=== PATIENT | female | born 1970 | race Hispanic/Latino ===

== ENCOUNTER 2017-12-12 14:14 | Observation (INO) | payer SELFPAY ==
[2017-12-12 15:03] LABS: #Eosinphils 0.1 thou/uL (0.0-0.7); #Lymphocytes 1.4 thou/uL (1.20-3.40); #Monocytes 0.4 thou/uL (0.11-0.59); #Neutrophils 4.8 thou/uL (1.40-6.50); %Basophils 0.4 % (0.0-1.0); %Eosinophils 1.2 % (0.0-10.0); %Lymphocytes 21.3 % (21.0-51.0); %Monocytes 5.9 % (0.0-10.0); %Neutrophils 71.2 % (42.0-75.0); Hemoglobin 13.5 g/dL (12.0-16.0); Mean Corpuscular HGB CONC 35.1 g/dL (32.0-36.0); Mean Corpuscular Hemoglobin 31.9 pg (27.0-31.0); Mean Corpuscular Volume 90.9 fL (78.0-98.0); Mean Platelet Volume 6.8 fL (7.4-10.4); Platelet Count 252 thou/uL (130-400); RBC Distribution Width 11.6 % (11.5-14.5); Red Blood Cell (RBC) Count 4.24 mill/uL (4.20-5.40); White Blood Cell (WBC) Count 6.7 thou/uL (4.8-10.8)
[2017-12-12 15:24] LABS: ALT (SGPT) 21 U/L (8-55); AST (SGOT) 15 U/L (5-34); Albumin 4.2 g/dL (3.5-5.0); Alkaline Phosphatase 73 U/L (40-150); Anion Gap 13 mmol/L (10-20); BUN (Urea Nitrogen) 10 mg/dL (7.0-18.7); Bilirubin, Total 0.5 mg/dL (0.2-1.2); Calc. Creatinine Clearance 0 mL/min (70-130); Calcium 9.2 mg/dL (7.8-10.44); Carbon Dioxide 23 mmol/L (22-29); Chloride 106 mmol/L (98-107); Estimated GFR-MDRD 64; Globulin 3.3 g/dL (2.4-3.5); Glucose 153 mg/dL (70-105); Potassium 3.5 mmol/L (3.5-5.1); Protein, Total 7.5 g/dL (6.0-8.3); Sodium 138 mmol/L (136-145)
[2017-12-12 15:27] LABS: CKMB 0.5 ng/mL (0-6.6); Troponin I Less than 0.010 ng/mL (< 0.028)
--- NOTE | 2017-12-12 15:53 | RAD ---
CHEST 1 VIEW: Date: 12/12/17 HISTORY: Palpitations. COMPARISON: None. FINDINGS: Lungs are clear. No pneumothorax or effusion. Cardiac silhouette and mediastinal contours within norm al limits. IMPRESSION: No acute intrathoracic abnormality. POS: AYESHAH
[2017-12-12 17:34] LABS: Bilirubin Negative (Negative); Blood, Urine Negative (Negative); Clarity TURBID (Clear); Glucose, Urine (Dipstick) Negative (Negative); Leukocyte Negative (Negative); Nitrite Negative (Negative); Protein, Urine (Dipstick) Negative (Neg-Trace); Specific Gravity, Urine 1.019 (1.002-1.036); Urobilinogen 0.2 mg/dL (0.2-1.0)
[2017-12-12 18:31] LABS: Troponin I Less than 0.010 ng/mL (< 0.028)
--- NOTE | 2017-12-12 21:24 | HP ---
PRIMARY CARE PHYSICIAN: Fred Sotelo M.D. DATE OF ADMISSION: 12/12/2017 TIME OF SERVICE: 1814. CHIEF COMPLAINT: Chest pain, palpitations. HISTORY OF PRESENT ILLNESS: Ms. Rivas is a pleasant 47-year-old female with no past medical history other than a one day history of palpitations about 2 years ago. She had a workup in the ER that was negative and was subsequently sent home. At this time is different that her palpitations have laste d intermittently for the last 3 days. She does feel like her heart is racing and will take a pause a nd will race to catch up again. She denies any syncope, but has felt dizzy and presyncopal. No naus ea, vomiting, diarrhea, or constipation. No diaphoresis. She has had no shortness of breath. No co ugh or sputum production. She denies any change or increase in her caffeine or stimulant increase. She had her normal morning . Workup in the emergency department showed normal labs and negative cardiac biomarkers. EKG showed so me T-wave inversions laterally. We were subsequently called for admission. She has not had any further recurrence in the emergency department. PAST MEDICAL HISTORY: None. PAST SURGICAL HISTORY: Appendectomy in 2012. HOME MEDICATIONS: None. ALLERGIES: NKDA. FAMILY HISTORY: Significant for a sister with stroke at age 45 and her other sister had heart proble ms starting at age 52. No known heart attacks. SOCIAL HISTORY: Negative for habits x3. REVIEW OF SYSTEMS: All systems reviewed and negative except as per HPI. PHYSICAL EXAMINATION: VITAL SIGNS: Temperature 97.8, pulse 82, blood pressure 113/75, respiratory rate 20, satting 97% on room air. GENERAL: She is awake, alert, oriented x3, well-developed, well-nourished female who appears to be i n no acute distress. HEENT: Normocephalic, atraumatic. Pupils equal, round, reactive to light bilaterally. Mucous membr anes are moist. She has no visible lesions. No thrush. NECK: Supple. She had no lymphadenopathy, JVD or thyromegaly with normal carotid upstroke. I do no t appreciate a bruit. LUNGS: Clear. CARDIOVASCULAR: She has normal S1, S2. No S3, S4. No audible murmurs. ABDOMEN: Soft, nontender, nondistended, no mass or organomegaly. EXTREMITIES: No cyanosis, no clubbing, and no edema. SKIN: Warm, moist and well perfused. She had no rashes, no lesions. MUSCULOSKELETAL: Normal to inspection. Large joints appear normal with no evidence of inflammation or palpable effusions. NEUROLOGIC: Cranial nerves II-XII are grossly intact. She has no focal deficits, 5/5 strength in al l 4 extremities and normal speech pattern. LABORATORY DATA: Sodium is 138, potassium 3.5, chloride 106, bicarb 23, BUN 16, creatinine 0.9, gluc ose 133, and calcium 9.2. Her liver functions completely within normal limits. Her CBC showed a whi te count of 6.7, hemoglobin 13.5, hematocrit 38.5, and platelet count is 252,000. CK-MB is normal at 0.5, troponin I is undetectable less than 0.010. BNP is elevated at 135. CK of 132. Chest x-ray showed no acute cardiopulmonary abnormality. ASSESSMENT AND PLAN: 1. Palpitations and acute coronary artery syndrome, low risk. We will get serial cardiac biomarkers placed on nitro paste, beta brianna, oxygen, and aspirin. We will reevaluate in the morning. We wi ll keep her on a regular cardiac diet tonight and n.p.o. after midnight in case if there is anything further to do. No activity prophylaxis. We will place her on single dose of Lovenox tonight. 2. Gastrointestinal prophylaxis on Pepcid b.i.d. 3. Placed on the observation unit with telemetry monitoring and follow up on her telemetry in the mo rning.
[2017-12-12 21:51] LABS: Troponin I Less than 0.010 ng/mL (< 0.028)
[2017-12-12] MEDS ORDERED: Acetaminophen 325 MG TAB PO PRN (22:41)
[2017-12-12] MEDS ORDERED: Enoxaparin Sodium 40 MG/0.4 ML SYRINGE SC SCH (22:41)
[2017-12-12] MEDS ORDERED: Ondansetron ODT 4 MG TAB PO PRN (22:41)
[2017-12-12] MEDS ORDERED: Ondansetron HCl/PF 4 MG/2 ML Vial IVP PRN (22:41)
[2017-12-12 22:43] VITALS: BMI 28.4
[2017-12-12] MEDS ORDERED: Nitroglycerin 2% Ointment 1 INCH/1 GM Packet TOP SCH (23:00)
[2017-12-12] MEDS ORDERED: Metoprolol Tartrate 25 MG TAB PO SCH (23:00)
[2017-12-12] MEDS ORDERED: Famotidine 20 MG TAB PO SCH (23:00)
[2017-12-12 23:54] LABS: CKMB 0.4 ng/mL (0-6.6); Troponin I Less than 0.010 ng/mL (< 0.028)
[2017-12-13 04:18] VITALS: TEMP 98.4
[2017-12-13] MEDS ORDERED: Nitroglycerin 2% Ointment 1 INCH/1 GM Packet TOP SCH (06:00)
[2017-12-13 07:03] LABS: #Basophils 0.1 thou/uL (0.0-0.2); #Eosinphils 0.1 thou/uL (0.0-0.7); #Lymphocytes 1.8 thou/uL (1.20-3.40); #Monocytes 0.4 thou/uL (0.11-0.59); #Neutrophils 2.9 thou/uL (1.40-6.50); %Basophils 1.8 % (0.0-1.0); %Eosinophils 2.2 % (0.0-10.0); %Lymphocytes 33.7 % (21.0-51.0); %Monocytes 7.7 % (0.0-10.0); %Neutrophils 54.6 % (42.0-75.0); Hemoglobin 12.9 g/dL (12.0-16.0); Mean Corpuscular HGB CONC 34.3 g/dL (32.0-36.0); Mean Corpuscular Hemoglobin 31.8 pg (27.0-31.0); Mean Corpuscular Volume 92.6 fL (78.0-98.0); Mean Platelet Volume 6.3 fL (7.4-10.4); Platelet Count 217 thou/uL (130-400); RBC Distribution Width 11.5 % (11.5-14.5); Red Blood Cell (RBC) Count 4.07 mill/uL (4.20-5.40); White Blood Cell (WBC) Count 5.3 thou/uL (4.8-10.8)
[2017-12-13 07:24] LABS: Anion Gap 12 mmol/L (10-20); BUN (Urea Nitrogen) 15 mg/dL (7.0-18.7); Calc. Creatinine Clearance 96 mL/min (70-130); Calcium 8.5 mg/dL (7.8-10.44); Carbon Dioxide 23 mmol/L (22-29); Cardiac Risk 5.6 (Less than 4.5); Chloride 107 mmol/L (98-107); Cholesterol 192 mg/dl (< 200 Desired); Estimated GFR-MDRD 66; Glucose 93 mg/dL (70-105); HDL Cholesterol 34 mg/dL (>60 Neg Risk); LDL Cholesterol, Calculated 98 mg/dL; Magnesium 2.3 mg/dL (1.6-2.6); Potassium 3.6 mmol/L (3.5-5.1); Sodium 138 mmol/L (136-145); Triglycerides 298 mg/dL (Less than 150)
[2017-12-13 07:28] LABS: CKMB 0.3 ng/mL (0-6.6); Troponin I Less than 0.010 ng/mL (< 0.028)
[2017-12-13 08:24] VITALS: BP 131/78
[2017-12-13] MEDS ORDERED: Aspirin 325 mg Enteric Coated Tablet PO SCH (09:00)
[2017-12-13] MEDS ORDERED: Famotidine 20 MG TAB PO SCH (09:00)
[2017-12-13] MEDS ORDERED: Metoprolol Tartrate 25 MG TAB PO SCH (09:00)
--- NOTE | 2017-12-13 12:29 | EKG ---
Test Reason : Blood Pressure : / mmHG Vent. Rate : 060 BPM Atrial Rate : 060 BPM P-R Int : 172 ms QRS Dur : 094 ms QT Int : 452 ms P-R-T Axes : 051 063 053 degrees QTc Int : 452 ms Normal sinus rhythm Normal ECG When compared with ECG of 12-DEC-2017 14:20, (Unconfirmed) T wave inversion no longer evident in Anterior leads Confirmed by TONY THOMAS, SJason ([id number]) on 12/13/2017 12:28:33 PM Referred By: KERRIE Confirmed By:DR. Gloria JIMENEZ MD
--- NOTE | 2017-12-17 11:29 | EKG ---
Test Reason : Blood Pressure : / mmHG Vent. Rate : 077 BPM Atrial Rate : 077 BPM P-R Int : 156 ms QRS Dur : 096 ms QT Int : 404 ms P-R-T Axes : 061 086 075 degrees QTc Int : 457 ms Normal sinus rhythm T wave abnormality, consider anterior ischemia Abnormal ECG Confirmed by PRINCE MCFARLAND DO ([id number]), image editor EVA GARCIA ([id number]) on 12/17/2017 11:29:06 AM Referred By: Confirmed By:PRINCE MCFARLAND DO
== END 2017-12-13 09:52 | disposition home or self-care (01) ==
LOC: ERS 14:14 → ERHOLD 18:56 → 2SW 22:40
PROVIDERS: ADMIT Internal Medicine Infectious Disease; ATTEND Internal Medicine Infectious Disease
DX: R00.2 Palpitations (principal)
CPT/HCPCS: 36415; 71045; 80048; 80053; 80061; 81003; 82553; 83735; 83880; 84484; 85025; 93005; 93010; 96372; G0378; J1650